=== PATIENT | female | born 1945 | race Caucasian/White ===

== ENCOUNTER 2017-04-16 13:15 | Emergency (ER) | payer MEDICARE, OTHER ==
--- NOTE | 2017-04-16 13:49 | ED ---
SOB HPI - General Chief Complaint: Shortness of Breath Stated Complaint: Diff Breathing, blood in urine Time Seen by Provider: 04/16/17 13:37 Source: patient, family, RN notes reviewed Mode of arrival: wheelchair Limitations: physical limitation - History of Present Illness Initial Comments: This is a 72-year-old female with a history of chronic lymphedema a history of some type of asthma-like lung process who does use a CPAP machine because of sleep apnea who states she started developing shortness of breath about 4 AM this morning he has a cough of white phlegm she denies any fevers chills or sweats however. No chest pain. He does have a history of DVT with no pulmonary embolism history. She currently only takes aspirin for any type of anticoagulant. She voices no other complaints. MD Complaint: shortness of breath - Related Data Home Medications Medication Instructions Recorded Confirmed Aspirin [Adult Low Dose Aspirin EC] 81 mg PO DAILY 04/16/17 04/16/17 Calcium Carbonate [Calcium] 600 mg PO DAILY 04/16/17 04/16/17 Docusate [Colace] 100 mg PO QID 04/16/17 04/16/17 Hydrocodone/Acetaminophen [[place] 1 tab PO TID PRN 04/16/17 04/16/17 7.5-325] Insulin NPL/Insulin Lispro 18 - 20 unit SQ HS 04/16/17 04/16/17 [humaLOG MIX 75-25 VIAL] Lactulose 10 gm PO DAILY 04/16/17 04/16/17 Lisinopril-Hctz 20-12.5 mg 1 tab PO DAILY 04/16/17 04/16/17 [Zestoretic 20-12.5] Magnesium 200 mg PO TID 04/16/17 04/16/17 Simvastatin [Zocor] 20 mg PO HS 04/16/17 04/16/17 metFORMIN HCL [Glucophage] 500 mg PO HS 04/16/17 04/16/17 traZODone HCL [Desyrel] 100 mg PO HS 04/16/17 04/16/17 Previous Rx's Medication Instructions Recorded Albuterol Inhaler [Ventolin Hfa 2 puff INHALATION Q6HR PRN #1 04/16/17 Inhaler] inhaler Allergies Allergy/AdvReac Type Severity Reaction Status Date / Time gentamicin [Gentamicin] Allergy Mild Rash/Hives Verified 04/16/17 14:35 heparin Allergy Mild Rash/Hives Verified 04/16/17 14:35 Heparin Analogues Allergy Mild Rash/Hives Verified 04/16/17 14:35 Penicillins Allergy Mild Rash/Hives Verified 04/16/17 14:35 clindamycin Allergy Rash/Hives Verified 04/16/17 14:35 erythromycin base Allergy Unknown Verified 04/16/17 14:35 morphine Allergy Rash/Hives Verified 04/16/17 14:35 Review of Systems ROS Statement: Those systems with pertinent positive or pertinent negative responses have been documented in the HPI. ROS Other: All systems not noted in ROS Statement are negative. Past Medical History Past Medical History: Asthma, Diabetes Mellitus, Hypertension, Pneumonia Additional Past Medical History / Comment(s): Pneumonia History of Any Multi-Drug Resistant Organisms: None Reported Past Surgical History: Bariatric Surgery, Section, Cholecystectomy Additional Past Surgical History / Comment(s): eye Past Psychological History: No Psychological Hx Reported Smoking Status: Never smoker Past Alcohol Use History: None Reported Past Drug Use History: None Reported General Exam - General Exam Comments Initial Comments: This is a well-developed well-nourished awake alert oriented x 3 female Limitations: physical limitation General appearance: alert, in no apparent distress Head exam: Present: atraumatic, normocephalic, normal inspection Eye exam: Present: normal appearance, PERRL, EOMI. Absent: scleral icterus, conjunctival injection, periorbital swelling ENT exam: Present: normal exam, mucous membranes moist Neck exam: Present: normal inspection. Absent: tenderness, meningismus, lymphadenopathy Respiratory exam: Present: decreased breath sounds. Absent: respiratory distress, wheezes, rales, rhonchi, stridor Cardiovascular Exam: Present: regular rate, normal rhythm, normal heart sounds. Absent: systolic murmur, diastolic murmur, rubs, gallop, clicks GI/Abdominal exam: Present: soft, normal bowel sounds, other (Obese abdomen). Absent: distended, tenderness, guarding, rebound, rigid Extremities exam: Present: normal inspection, full ROM, normal capillary refill , other (Bilateral lymphedema some mild tenderness over the right calf no palpable cords). Absent: tenderness, pedal edema, joint swelling, calf tenderness Back exam: Present: normal inspection Neurological exam: Present: alert, oriented X3, CN II-XII intact Psychiatric exam: Present: normal affect, normal mood Skin exam: Present: warm, dry, intact, normal color. Absent: rash Course Vital Signs 04/16/17 04/16/17 04/16/17 13:26 14:30 15:46 Temperature 98.7 F Pulse Rate 69 66 59 L Respiratory 18 20 20 Rate Blood Pressure 135/59 108/55 135/63 O2 Sat by Pulse 96 94 L 95 Oximetry Medical Decision Making - Medical Decision Making Reevaluation patient reveals no further issues with breathing she presents consistent with a bronchospasm. She'll be discharged with an inhaler for prescription she is instructed to follow-up with Dr. aiken return when necessary - Lab Data Result diagrams: 04/16/17 13:53 04/16/17 13:53 Lab Results 04/16/17 04/16/17 04/16/17 Range/Units 13:53 13:53 13:53 WBC 5.6 (3.8-10.6) k/uL RBC 3.88 (3.80-5.40) m/uL Hgb 12.6 (11.4-16.0) gm/dL Hct 38.0 (34.0-46.0) % MCV 98.0 (80.0-100.0) fL MCH 32.6 (25.0-35.0) pg MCHC 33.2 (31.0-37.0) g/dL RDW 13.2 (11.5-15.5) % Plt Count 181 (150-450) k/uL Neutrophils % 74 % Lymphocytes % 17 % Monocytes % 5 % Eosinophils % 3 % Basophils % 0 % Neutrophils # 4.1 (1.3-7.7) k/uL Lymphocytes # 0.9 L (1.0-4.8) k/uL Monocytes # 0.3 (0-1.0) k/uL Eosinophils # 0.2 (0-0.7) k/uL Basophils # 0.0 (0-0.2) k/uL PT (9.0-12.0) sec INR (<1.2) APTT (22.0-30.0) sec D-Dimer (<0.60) mg/L FEU Sodium 137 (137-145) mmol/L Potassium 4.3 (3.5-5.1) mmol/L Chloride 102 (98-107) mmol/L Carbon Dioxide 27 (22-30) mmol/L Anion Gap 8 mmol/L BUN 19 H (7-17) mg/dL Creatinine 0.90 (0.52-1.04) mg/dL Est GFR (MDRD) Af Amer >60 (>60 ml/min/1.73 sqM) Est GFR (MDRD) Non-Af >60 (>60 ml/min/1.73 sqM) Glucose 247 H (74-99) mg/dL Calcium 8.6 (8.4-10.2) mg/dL Magnesium 1.7 (1.6-2.3) mg/dL Total Bilirubin 0.2 (0.2-1.3) mg/dL AST 17 (14-36) U/L ALT 20 (9-52) U/L Alkaline Phosphatase 56 (38-126) U/L Total Creatine Kinase 25 L (30-135) U/L CK-MB (CK-2) <0.2 (0.0-2.4) ng/mL CK-MB (CK-2) Rel Index Troponin I <0.012 (0.000-0.034) ng/mL NT-Pro-B Natriuret Pep pg/mL Total Protein 5.9 L (6.3-8.2) g/dL Albumin 3.6 (3.5-5.0) g/dL Amylase (30-110) U/L Lipase (23-300) U/L 04/16/17 04/16/17 04/16/17 Range/Units 13:53 13:53 13:53 WBC (3.8-10.6) k/uL RBC (3.80-5.40) m/uL Hgb (11.4-16.0) gm/dL Hct (34.0-46.0) % MCV (80.0-100.0) fL MCH (25.0-35.0) pg MCHC (31.0-37.0) g/dL RDW (11.5-15.5) % Plt Count (150-450) k/uL Neutrophils % % Lymphocytes % % Monocytes % % Eosinophils % % Basophils % % Neutrophils # (1.3-7.7) k/uL Lymphocytes # (1.0-4.8) k/uL Monocytes # (0-1.0) k/uL Eosinophils # (0-0.7) k/uL Basophils # (0-0.2) k/uL PT 9.7 (9.0-12.0) sec INR 0.9 (<1.2) APTT 23.4 (22.0-30.0) sec D-Dimer 0.19 (<0.60) mg/L FEU Sodium (137-145) mmol/L Potassium (3.5-5.1) mmol/L Chloride (98-107) mmol/L Carbon Dioxide (22-30) mmol/L Anion Gap mmol/L BUN (7-17) mg/dL Creatinine (0.52-1.04) mg/dL Est GFR (MDRD) Af Amer (>60 ml/min/1.73 sqM) Est GFR (MDRD) Non-Af (>60 ml/min/1.73 sqM) Glucose (74-99) mg/dL Calcium (8.4-10.2) mg/dL Magnesium (1.6-2.3) mg/dL Total Bilirubin (0.2-1.3) mg/dL AST (14-36) U/L ALT (9-52) U/L Alkaline Phosphatase (38-126) U/L Total Creatine Kinase (30-135) U/L CK-MB (CK-2) (0.0-2.4) ng/mL CK-MB (CK-2) Rel Index Troponin I (0.000-0.034) ng/mL NT-Pro-B Natriuret Pep 69 pg/mL Total Protein (6.3-8.2) g/dL Albumin (3.5-5.0) g/dL Amylase <30 L (30-110) U/L Lipase 108 (23-300) U/L - EKG Data -: EKG Interpreted by Me EKG shows normal: sinus rhythm (Sinus rhythm with first-degree AV block rate was 65. Interval 2:30 QRS 86 QT since QTC of no acute ST-T wave changes) - Radiology Data Radiology results: report reviewed (I did review the imaging and reports no acute findings or is evidence of ascending aortic aneurysm which appears be stable.), image reviewed Disposition Clinical Impression: Bronchospasm, acute Disposition: HOME SELF-CARE Condition: Good Instructions: Bronchospasm (ED) Prescriptions: Albuterol Inhaler [Ventolin Hfa Inhaler] 2 puff INHALATION Q6HR PRN #1 inhaler PRN Reason: Dyspnea Referrals: Ahsan Michelle MD [Primary Care Provider] - 1-2 days
[2017-04-16 14:17] LABS: Basophils % (A) 0 %; CH 33.6; CHCM 34.5; Eosinophils # (A) 0.2 k/uL (0-0.7); Eosinophils % (A) 3 %; HDW 2.52; HGB 12.6 gm/dL (11.4-16.0); Luc # (Auto) 0.13; Luc % (Auto) 2; Lymphocytes # (A) 0.9 k/uL (1.0-4.8); Lymphocytes % (A) 17 %; MCH 32.6 pg (25.0-35.0); MCHC 33.2 g/dL (31.0-37.0); Mean Platelet Volume 8.2; Monocytes # (A) 0.3 k/uL (0-1.0); Monocytes % (A) 5 %; Neutrophils # (A) 4.1 k/uL (1.3-7.7); Neutrophils % (A) 74 %; RBC 3.88 m/uL (3.80-5.40); RDW 13.2 % (11.5-15.5); WBC 5.6 k/uL (3.8-10.6)
[2017-04-16 14:26] LABS: ALT 20 U/L (9-52); AST 17 U/L (14-36); Alkaline Phosphatase 56 U/L (38-126); Anion Gap 8 mmol/L; Blood Urea Nitrogen 19 mg/dL (7-17); Calcium 8.6 mg/dL (8.4-10.2); Carbon Dioxide 27 mmol/L (22-30); Chloride 102 mmol/L (98-107); Glucose 247 mg/dL (74-99); Magnesium 1.7 mg/dL (1.6-2.3); Non-African American GFR(MDRD) >60 (>60 ml/min/1.73 sqM); Potassium 4.3 mmol/L (3.5-5.1); Sodium 137 mmol/L (137-145); Total Bilirubin 0.2 mg/dL (0.2-1.3); Total Protein 5.9 g/dL (6.3-8.2)
--- NOTE | 2017-04-16 14:27 | XR ---
EXAMINATION TYPE: XR chest 2V DATE OF EXAM: 04/16/2017 COMPARISON: NONE HISTORY: Shortness of breath TECHNIQUE: Frontal and lateral views of the chest are obtained. FINDINGS: There is no focal air space opacity, pleural effusion, or pneumothorax seen. The cardiac silhouette size is within normal limits. The osseous structures are intact. Hilar prominence is see n on the right and left within the aorticopulmonary window, which may relate to underlying pulmonary arterial hypertension. IMPRESSION: 1. No acute cardiopulmonary process. 2. Hilar prominence within the aorticopulmonary window on the left and hilar region on the right, whi ch may relate to underlying pulmonary arterial hypertension.
[2017-04-16 14:34] VITALS: RESP 20
[2017-04-16 14:35] LABS: INR 0.9 (<1.2); Partial Thromboplastin Time 23.4 sec (22.0-30.0); Prothrombin Time 9.7 sec (9.0-12.0)
[2017-04-16] MEDS ORDERED: RX INFO: IV CONTRAST WAS GIVEN 1 EACH MISC MISCELLANE PRN (14:56)
[2017-04-16 14:59] LABS: Creatine Kinase 25 U/L (30-135)
[2017-04-16 15:12] LABS: Creatine Kinase MB <0.2 ng/mL (0.0-2.4); Troponin I <0.012 ng/mL (0.000-0.034)
[2017-04-16 15:13] LABS: Amylase <30 U/L (30-110)
--- NOTE | 2017-04-16 15:47 | CT ---
EXAMINATION TYPE: CT angio chest DATE OF EXAM: 04/16/2017 COMPARISON: NONE HISTORY: Sob. CT DLP: 1233 mGycm CONTRAST: CT chest with contrast and 3D reconstruction with MIP imaging is performed with IV Contrast, patient injected with 100 mL of Omnipaque 350. Contrast-enhanced CT of the chest was performed through the course of the pulmonary arteries with darshana g and mediastinal window settings submitted. 3D reconstruction with MIP imaging was also performed. PULMONARY ARTERIES: The pulmonary arteries and their major tributaries are patent. I do not see matt dence for sizable filling defect to suggest pulmonary embolic process. LUNGS: The lungs are clear and free of infiltrate. No evidence for atelectasis. No pulmonary nodule or mass is detected. No pleural effusion. MEDIASTINUM: Uncomplicated ascending thoracic aortic aneurysm measuring 4.6 cm AP dimension. Aortic a rch and descending thoracic aorta are of normal caliber. The heart is mildly enlarged. No evidence fo r mediastinal mass. No mediastinal lymph nodes greater than 1cm. HILAR STRUCTURES: No evidence for mass. No hilar lymph nodes greater than 1 cm. UPPER ABDOMEN: Gastric banding device identified. Nodular thickening of the adrenal glands. IMPRESSION: 1. No evidence for Pulmonary embolism at this time. Ascending thoracic aortic aneurysm.
[2017-04-16 17:10] VITALS: BP 130/65; PULSE 63; TEMP 98.8
== END 2017-04-16 17:10 | disposition home or self-care (01) ==
LOC: EC 13:15
DX: J98.01 Acute bronchospasm (principal); E11.9 Type 2 diabetes mellitus without complications; I10 Essential (primary) hypertension; G47.30 Sleep apnea, unspecified; I89.0 Lymphedema, not elsewhere classified; R31.9 Hematuria, unspecified; Z99.89 Dependence on other enabling machines and devices; Z86.718 Personal history of other venous thrombosis and embolism; Z79.82 Long term (current) use of aspirin; Z79.4 Long term (current) use of insulin; Z79.84 Long term (current) use of oral hypoglycemic drugs; Z79.899 Other long term (current) drug therapy; Z88.0 Allergy status to penicillin; Z88.1 Allergy status to other antibiotic agents; Z88.2 Allergy status to sulfonamides; Z88.5 Allergy status to narcotic agent; Z88.8 Allergy status to other drugs, medicaments and biological substances
CPT/HCPCS: 99285 ×2; 36415; 93005; 85379; 83880; 80053; 82150; 82550; 82553; 83690; 83735; 84484; 85025; 85610; 85730; 71020; 71275; Q9967

== ENCOUNTER 2017-04-20 10:42 | Emergency (ER) | payer MEDICARE, OTHER ==
[2017-04-20 11:14] VITALS: BP 143/65; PULSE 69; RESP 20; TEMP 100
--- NOTE | 2017-04-20 12:57 | ED ---
General Adult HPI - General Chief complaint: Fall Stated complaint: fall, pain all over Time Seen by Provider: 04/20/17 12:14 Source: patient, RN notes reviewed Mode of arrival: wheelchair Limitations: no limitations - History of Present Illness Initial comments: Patient 70-year-old female who presents emergency room today with chief complaint of fall occurred 2 days ago. She states she was trying to get into the door and she tripped over the lip causing her to lose her balance falling backwards. She states she twisted her right ankle and right knee is also experiencing some pain to the lower back. She missed some pain in her neck but she states soft to the left side. Patient states that these pains are worse certain movements. She denies any other complaints or symptoms. She denies any head injury or loss consciousness. She states she only uses a baby aspirin and no other blood thinners. Patient denies any recent fever, chills, shortness of breath, chest pain, abdominal pain, nausea or vomiting, numbness or tingling, dysuria or hematuria, constipation or diarrhea, headache, visual changes, or any other complaints. - Related Data Home Medications Medication Instructions Recorded Confirmed Aspirin [Adult Low Dose Aspirin EC] 81 mg PO DAILY 04/16/17 04/16/17 Calcium Carbonate [Calcium] 600 mg PO DAILY 04/16/17 04/16/17 Docusate [Colace] 100 mg PO QID 04/16/17 04/16/17 Hydrocodone/Acetaminophen [[place] 1 tab PO TID PRN 04/16/17 04/16/17 7.5-325] Insulin NPL/Insulin Lispro 18 - 20 unit SQ 04/16/17 04/16/17 [humaLOG MIX 75-25 VIAL] Lactulose 10 gm PO DAILY 04/16/17 04/16/17 Lisinopril-Hctz 20-12.5 mg 1 tab PO DAILY 04/16/17 04/16/17 [Zestoretic 20-12.5] Magnesium 200 mg PO TID 04/16/17 04/16/17 Simvastatin [Zocor] 20 mg PO HS 04/16/17 04/16/17 metFORMIN HCL [Glucophage] 500 mg PO HS 04/16/17 04/16/17 traZODone HCL [Desyrel] 100 mg PO HS 04/16/17 04/16/17 Previous Rx's Medication Instructions Recorded Albuterol Inhaler [Ventolin Hfa 2 puff INHALATION Q6HR PRN #1 04/16/17 Inhaler] inhaler Allergies Allergy/AdvReac Type Severity Reaction Status Date / Time gentamicin [Gentamicin] Allergy Mild Rash/Hives Verified 04/20/17 11:14 heparin Allergy Mild Rash/Hives Verified 04/20/17 11:14 Heparin Analogues Allergy Mild Rash/Hives Verified 04/20/17 11:14 Penicillins Allergy Mild Rash/Hives Verified 04/20/17 11:14 clindamycin Allergy Rash/Hives Verified 04/20/17 11:14 erythromycin base Allergy Unknown Verified 04/20/17 11:14 morphine Allergy Rash/Hives Verified 04/20/17 11:14 Review of Systems ROS Statement: Those systems with pertinent positive or pertinent negative responses have been documented in the HPI. ROS Other: All systems not noted in ROS Statement are negative. Past Medical History Past Medical History: Asthma, Diabetes Mellitus, Hypertension, Pneumonia Additional Past Medical History / Comment(s): Pneumonia History of Any Multi-Drug Resistant Organisms: None Reported Past Surgical History: Bariatric Surgery, Section, Cholecystectomy Additional Past Surgical History / Comment(s): eye Past Psychological History: No Psychological Hx Reported Smoking Status: Never smoker Past Alcohol Use History: None Reported Past Drug Use History: None Reported General Exam - General Exam Comments Initial Comments: General: The patient is awake and alert, in no distress, and does not appear acutely ill. Eye: Pupils are equal, round and reactive to light, extra-ocular movements are intact. No nystagmus. There is normal conjunctiva bilaterally. No signs of icterus. Ears, nose, mouth and throat: There are moist mucous membranes and no oral lesions. Neck: The neck is supple, there is no tenderness or JVD. No tenderness in his cervical spine. No step-offs deformities appreciated. Mild tenderness paravertebrally over the left side Cardiovascular: There is a regular rate and rhythm. No murmur, rub or gallop is appreciated. Respiratory: Lungs are clear to auscultation, respirations are non-labored, breath sounds are equal. No wheezes, stridor, rales, or rhonchi. Musculoskeletal: Patient shows good range of motion both upper and lower extremities. Mild tenderness to medial aspect of the right ankle. Mildly tender to the anterior aspect of the right knee. Mild tenderness lower lumbar spine of L4-L5. No other bony abnormalities or tenderness. No step-offs deformities appreciated of the cervical, thoracic, lumbar spine. Patient strength is 5/5 in all areas. Sensations are intact pulses equal bilaterally 2+ . Neurological: A&O x 3. CN II-XII intact, There are no obvious motor or sensory deficits. Coordination appears grossly intact. Speech is normal. Skin: Skin is warm and dry and no rashes or lesions are noted. Psychiatric: Cooperative, appropriate mood & affect, normal judgment. Limitations: no limitations Course Vital Signs 04/20/17 11:10 Temperature 100.0 F H Pulse Rate 69 Respiratory 20 Rate Blood Pressure 143/65 O2 Sat by Pulse 95 Oximetry Medical Decision Making - Medical Decision Making Case discussed in detail with attending physician . Patient reexamined at this time shows no signs of distress resting comfortably. Patient's x-rays of the knee and ankle are negative for any acute fracture dislocation. There is possible endplate fracture of indeterminate age of L3. No other acute abnormalities. Results were discussed with the patient and she is advised to follow-up with her family doctor. Advised return to emergency room if any symptoms increase or worsen. Disposition Clinical Impression: Fall, Low back pain, Ankle sprain, Knee pain Disposition: HOME SELF-CARE Condition: Good Instructions: Acute Low Back Pain (ED) Additional Instructions: Please use medication as discussed. Please follow-up with family doctor in the next 2 days. Please return to emergency room if the symptoms increase or worsen or for any other concerns. Referrals: Ahsan Michelle MD [Primary Care Provider] - 1-2 days Time of Disposition: 13:32
--- NOTE | 2017-04-20 13:22 | XR ---
EXAMINATION TYPE: XR ankle complete RT DATE OF EXAM: 04/20/2017 CLINICAL HISTORY: Fall on knees TECHNIQUE: Frontal, lateral and oblique images of the right ankle are obtained. COMPARISON: None. FINDINGS: There is no acute fracture/dislocation evident in the right ankle. There is extensive sof t tissue prominence over the distal foreleg. Spurring is noted at the medial metaphysis. There is willa rowing of the ankle mortise compatible with osteoarthritic degenerative change. Plantar and Achilles tendon calcaneal heel spurs are present. IMPRESSION: 1. There is no acute fracture or dislocation in the right ankle. 2. Calcaneal heel spurs. 3. Osteoarthritic degenerative change medial ankle mortise
--- NOTE | 2017-04-20 13:23 | XR ---
EXAMINATION TYPE: XR lumbar spine 2 or 3V DATE OF EXAM: 04/20/2017 COMPARISON: NONE HISTORY: Fall onto knees, pain TECHNIQUE: Three-view lumbar spine FINDINGS: There 5 lumbar-type vertebral bodies. The pedicles are intact. There is loss of disc height throughout the lumbar spine. Vacuum disc phenomenon is present L1-2 through L4-5. Spondylosis is pre sent. Mild superior endplate changes at L3 are present. This is age indeterminant. IMPRESSION: 1. Minimal superior endplate changes at L3 of indeterminate age. 2. Multiple chronic degenerative disc changes
--- NOTE | 2017-04-20 13:24 | XR ---
EXAMINATION TYPE: XR knee complete RT DATE OF EXAM: 04/20/2017 CLINICAL HISTORY: Right knee pain after fall TECHNIQUE: Three views of the right knee are obtained. COMPARISON: None. FINDINGS: There is no acute fracture/dislocation evident in right knee. Advanced tricompartmental os teoarthrosis is seen with [id number] articulation of the weightbearing surface of the medial compar tment, large protruding marginal osteophytes, subchondral sclerosis, and subchondral cystic formation . Small suprapatellar joint effusion is noted. The overlying soft tissue appears unremarkable. IMPRESSION: 1. There is no acute fracture or dislocation in the right knee. 2. Advanced tricompartmental osteoarthrosis.
== END 2017-04-20 13:39 | disposition home or self-care (01) ==
LOC: EC 10:42
DX: S93.401A Sprain of unspecified ligament of right ankle, initial encounter (principal); M54.5 Low back pain; M25.561 Pain in right knee; E11.9 Type 2 diabetes mellitus without complications; I10 Essential (primary) hypertension; Z79.4 Long term (current) use of insulin; Z79.82 Long term (current) use of aspirin; Z79.899 Other long term (current) drug therapy; Z88.0 Allergy status to penicillin; Z88.1 Allergy status to other antibiotic agents; Z88.5 Allergy status to narcotic agent; Z88.8 Allergy status to other drugs, medicaments and biological substances; W01.0XXA Fall on same level from slipping, tripping and stumbling without subsequent striking against object, initial encounter; Y93.89 Activity, other specified; Y92.009 Unspecified place in unspecified non-institutional (private) residence as the place of occurrence of the external cause
CPT/HCPCS: 72100; 99283

== ENCOUNTER → 2018-09-05 | Outpatient (CLI) | payer MEDICARE ==
--- NOTE | 2018-09-06 00:08 | MR ---
EXAMINATION TYPE: MR cervical spine wo con DATE OF EXAM: 09/05/2018 COMPARISON: None HISTORY: Spondylosis without myelopathy, Rt hand weakness, and Rt arm pain TECHNIQUE: Multiplanar, multisequence images of the cervical spine were acquired. There is some straightening of the cervical spine. There is degenerative disc space narrowing from C3 to C7. Cervical spinal cord has fairly normal signal pattern without definite edema. There are small posterior disc bulges at C3-4 C4-5 C5-6 without significant narrowing of the spinal canal. Canal paige sures 8.3 mm at C3-4. The brainstem appears intact. There is no compression fracture. There is no cer vical paraspinal mass. Posterior elements appear intact. IMPRESSION: Multilevel spondylotic changes. No spinal stenosis. No fracture.
== END ==
LOC: RADMRIMAIN 19:31
PROVIDERS: ATTEND Physical Medicine & Rehabilitation
DX: M47.812 Spondylosis without myelopathy or radiculopathy, cervical region (principal)
CPT/HCPCS: 72141

== ENCOUNTER → 2019-08-20 | Outpatient (CLI) | payer MEDICARE ==
--- NOTE | 2019-08-20 15:04 | XR ---
EXAMINATION TYPE: XR toes RT DATE OF EXAM: 08/20/2019 COMPARISON: NONE, prior abnormal films are not available at this location HISTORY: Follow-up recent fifth toe fracture TECHNIQUE: Three-view right fifth digit FINDINGS: Acute fracture is not identified. Some minimal subluxation medially of the proximal phalanx on the metatarsal may be present. No solid acute fractures are evident. IMPRESSION: 1. Acute fracture not identified
== END | disposition home or self-care (01) ==
LOC: RADXRMAIN 14:34
PROVIDERS: ATTEND Family Medicine
DX: S92.501D Displaced unspecified fracture of right lesser toe(s), subsequent encounter for fracture with routine healing (principal)